=== PATIENT | female | born 1965 | race Caucasian/White ===

== ENCOUNTER 2016-09-10 20:50 | Inpatient (IN) | payer OTHER ==
--- NOTE | ~2016-09-10 | HP ---
History And Physical [place] [id number] [facility] [place] [address] NAME: FACUNDO FENG : 63 STATUS : ADM Emmanuel PAT#: [id number] AGE: 51 ADM/REG DATE : 09/10/16 MR#: [id number] REPORT SERV DATE: 09/11/16 DICTATED BY: ISIDORO WILSON DATE: 09/11/16 REPORT STATUS : Draft TRANSCRIBED BY: MODL DATE: 09/11/16 DATE OF ADMISSION: 09/10/2016 CHIEF COMPLAINT: A 51-year-old female, presenting with left chest discomfort and evidence of pneumothorax. HISTORY OF PRESENT ILLNESS: The patient's history was obtained through careful interview with the patient, and adopted sister coupled with review of [facility] and [facility] medical records. The patient in March 2016, underwent a liver transplant, has been on anti-rejection medication since that time. In June 2016 has begun to develop intermittent severe gastroparesis progressed from what she has experienced prior and she states that over the last three weeks in particular she has had severe nausea and vomiting on a daily basis with a very poor appetite. It is in this context that from vomiting she has apparently developed some discomfort in her left chest at the base of the chest "under my rib cage" about a sharp nagging quality pain, 10/10 severity, associated with shortness of breath causing her to double over at times. For evaluation of her abdominal pain she was ordered to have a CT scan done by Dr. Tamayo, linux architect, and this showed no acute intraabdominal process, but a left pneumothorax, therefore she was redirected to the hospital for further evaluation. There has been no cough. She has been "shaking" at times, but no fevers or chills. In the last three years she has lost about 100 pounds, and in the last six months, since her liver transplant she has lost another 35 pounds. REVIEW OF SYSTEMS: Otherwise, a 14-point review of systems was obtained and was negative. PAST MEDICAL HISTORY: 1. 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 2. Previous complications of cirrhosis including varices with band placement, splenomegaly, ascites, hepatorenal syndrome, and hepatic encephalopathy. 3. Pancytopenia. 4. Gastroesophageal reflux disorder. 5. Diabetes. 6. Hypothyroidism. 7. Depression. 8. Migraine headaches. 9. Biliary pancreatitis in 2003. 10.Gastroparesis. History And Physical [address] [place]. [address] NAME: FACUNDO FENG : 63 STATUS : ADM Emmanuel PAT#: [id number] AGE: 51 ADM/REG DATE : 09/10/16 MR#: [id number] REPORT SERV DATE: 09/11/16 DICTATED BY: ISIDORO WILSON DATE: 09/11/16 REPORT STATUS : Draft TRANSCRIBED BY: BRUCE DATE: 09/11/16 PAST SURGICAL HISTORY: 1. Liver transplant at [facility] in March 2016. 2. Cholecystectomy. 3. Appendectomy. 4. Hysterectomy with oophorectomy. ALLERGIES: TO ATIVAN AND ZANAFLEX. SOCIAL HISTORY: Quit smoking. No alcohol abuse. She is , has no children though. She is disabled. Lives in [place], [place]. FAMILY HISTORY: Adopted. CURRENT MEDICATIONS: 1. Elavil 50 mg p.o. q.h.s. 2. Norvasc 10 mg p.o. daily. 3. Vitamin D. 4. Benadryl p.r.n. 5. Synthroid 112 mcg p.o. daily. 6. Robaxin 750 mg p.o. t.i.d. as needed. 7. CellCept 500 mg p.o. b.i.d. 8. Roxicodone 10 mg every 6 hours as needed. 9. Protonix 40 mg p.o. daily. 10.Phenergan p.r.n. 11.Simethicone. 12.Prograf 6 mg p.o. b.i.d. 13.Probiotics. 14.Effexor 37.5 mg p.o. daily. PHYSICAL EXAMINATION: VITAL SIGNS: Temperature 98, pulse 99, blood pressure 128/68, respiratory rate 16, and O2 saturation 97% on room air. GENERAL: A pleasant, cooperative female, in no significant distress. HEENT: Pupils equal, round, and reactive to light. No conjunctival pallor. No scleral icterus. Nares are patent. Oropharynx is clear of obstruction. Moist mucous membranes. NECK: Trachea midline. No thyromegaly. LYMPH: No cervical lymphadenopathy. No supraclavicular lymphadenopathy. RESPIRATORY: Generally clear to auscultation at bases. I do not appreciate any diminished breath sounds or other abnormalities in the left lung in particular. The patient has a nonlabored respiratory effort. CARDIOVASCULAR: Regular rate and rhythm. No murmurs, rubs, or gallops. No extremity edema is appreciated. ABDOMEN: Soft, nontender, and nondistended. Normal bowel sounds auscultated throughout. No hepatosplenomegaly. DERMATOLOGICAL: Warm and dry extremities. No pallor. No cyanosis. PSYCHIATRIC: Normal affect. Good mood. Alert and oriented x3. History And Physical [address] [address] NAME: FACUNDO FENG : 63 STATUS : ADM Emmanuel PAT#: [id number] AGE: 51 ADM/REG DATE : 09/10/16 MR#: [id number] REPORT SERV DATE: 09/11/16 DICTATED BY: ISIDORO WILSON DATE: 09/11/16 REPORT STATUS : Draft TRANSCRIBED BY: MODVannessa DATE: 09/11/16 LABORATORY DATA: White blood cell count 2.6, hemoglobin 9.3, hematocrit 26.9, and platelets 78. Sodium 139, potassium 5.2, chloride 108, bicarb 24, BUN 37, creatinine 1.33, and glucose 95. INR 1.1. Liver enzymes within normal limits. STUDIES: 1. Chest x-ray by my own evaluation shows left pneumothorax. 2. EKG by my own evaluation shows sinus rhythm, low QRS voltage. ASSESSMENT AND PLAN: 1. Left pneumothorax. Consult Dr. Lao, radiosonde specialist, who is aware of case likely this was actually suffered about two weeks ago by her history. We will place her on 100% non-rebreather mask tonight. Anticipate chest tube placement on the morning of 09/11/2016 under the care of Dr. Perez, very stable at this time. 2. Liver transplant. 3. Pancytopenia. 4. Gastroparesis. Scheduled IV Reglan. KPL/MODL Isidoro Wilson M.D. / [id number] CC: Jacquie Belen Tim, M.D. Dustin Yousuf Perez II, III, M.D. Chirag Patel, M.D.
--- NOTE | ~2016-09-10 | CN ---
Consultation Report [facility] [address] [place]. [address] NAME: FACUNDO FENG : 63 STATUS : ADM Emmanuel PAT#: [id number] AGE: 51 ADM/REG DATE : 09/10/16 MR#: [id number] REPORT SERV DATE: 09/11/16 DICTATED BY: MOMO MALDONADO DATE: 09/11/16 REPORT STATUS : Draft TRANSCRIBED BY: MODL DATE: 09/11/16 CONSULTATION NOTE DATE OF CONSULTATION: 09/11/2016 CHIEF COMPLAINT: Left pleuritic pain in a patient with an enlarging left pneumothorax. HISTORY OF PRESENT ILLNESS: Mrs. Facundo Feng is a pleasant 51-year-old white female with a past medical history significant for nonalcoholic steatohepatitis, status post liver transplant, gastroparesis, and hypertension, who presents to [facility] with complaints of left pleuritic pain of one to two weeks' duration. It should be noted that, Mrs. Feng has not been hospitalized recently and has done fairly well given her comorbidities. Mrs. Feng is not currently followed by yeast supervisor. She does not usually require supplemental oxygen. She is on no nebulized medications. She states that she quit smoking over 30 years ago, prior to this time, she smoked approximately half a pack a day for a period of seven years. She largely denies symptomatology related to obstructive sleep apnea. She describes her exercise tolerance as of late, is being excellent, being able to walk a city block before experiencing any shortness of breath. The patient did undergo a liver transplant at [facility] in 2016. More recently, she has been began to develop intermittent severe gastroparesis. Approximately one to two weeks ago, she vomited with such force that soon after, she developed some left sided pain underneath her rib cage. It was thought that time that she conceivably may have pulled a muscle. That being said, the pain did persist and eventually culminated in her presentation to [facility]'s Emergency Room. Upon arrival, she was found to be normotensive and afebrile. She had good oxygenation sats on room air. Her initial blood work revealed a white blood cell count of 2600. Her creatinine was 1.33. She did undergo a chest x-ray, which demonstrated a left pneumothorax. She has had subsequent imaging which demonstrates enlargement in that pneumothorax. For the aforementioned reasons, she has been referred to the Pulmonary Service for further assessment. The patient's main pulmonary complaint is left-sided pleuritic pain. This is worse on inspiration. Interestingly, she has no complaints of shortness of breath. She does have some cough, but it is nonproductive. She denies any previous pneumothorax. She denies frequent upper respiratory infections or pneumonias. She denies childhood history of asthma. The patient does have a history of hypertension. She currently denies any murmurs, angina, or palpitations. She denies any paroxysmal nocturnal dyspnea or orthopnea. In regard to constitutional symptoms, the patient has had significant weight loss over the last six months. She has probably lost 100 pounds. She currently denies any fever, chills, abdominal pain, or edema. Consultation Report [address] [address] NAME: FACUNDO FENG : 63 STATUS : ADM Emmanuel PAT#: [id number] AGE: 51 ADM/REG DATE : 09/10/16 MR#: [id number] REPORT SERV DATE: 09/11/16 DICTATED BY: MOMO MALDONADO DATE: 09/11/16 REPORT STATUS : Draft TRANSCRIBED BY: BRUCE DATE: 09/11/16 PAST MEDICAL HISTORY: 1. Liver transplant secondary to ANDRADE cirrhosis. 2. Esophageal varices, status post band placement. 3. Pancytopenia. 4. Gastroesophageal reflux disease. 5. Diabetes. 6. Hypothyroidism. 7. Depression. 8. Migraine headaches. 9. Pancreatitis. 10.Gastroparesis. PAST SURGICAL HISTORY: 1. Liver transplant. 2. Cholecystectomy. 3. Hysterectomy with oophorectomy. 4. Bilateral carpal tunnel surgery. 5. Cervical surgery. FAMILY HISTORY: The patient denies family history of lung disease. SOCIAL HISTORY: The patient is . She has no children. 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 She denies any known exposures to dust, silica, or asbestos. TOBACCO/ALCOHOL: As previously mentioned, the patient quit smoking over thirty years ago, prior to this time, she smoked approximately half a pack a day for a period of seven years. She denies any recent alcohol or drug use. MEDICATIONS: 1. Amitriptyline 50 mg. 2. Amlodipine 10 mg. 3. Diphenhydramine 25 mg. 4. Levothyroxine 112 mcg. 5. Robaxin 750 mg. 6. CellCept 500 mg. 7. Oxycodone 5 mg. 8. Pantoprazole 40 mg. 9. Promethazine 25 mg. 10.Simethicone 125 mg. 11.Prograf 1 mg. 12.Venlafaxine 37.5 mg. ALLERGIES: THE PATIENT HAS ALLERGY TO ADHESIVES, TIZANIDINE. SHE HAS ADVERSE REACTIONS TO Consultation Report [address] [place]. [address] NAME: FACUNDO FENG : 63 STATUS : ADM Emmanuel PAT#: [id number] AGE: 51 ADM/REG DATE : 09/10/16 MR#: [id number] REPORT SERV DATE: 09/11/16 DICTATED BY: MOMO MALDONADO DATE: 09/11/16 REPORT STATUS : Draft TRANSCRIBED BY: BRUCE DATE: 09/11/16 LORAZEPAM. REVIEW OF SYSTEMS: A complete review of systems was performed with pertinent positives and negatives contained within the body of the HPI. PHYSICAL EXAMINATION: VITAL SIGNS: Blood pressure is 167/81, heart rate is 83, T-max is 98.4, respiratory rate is 14, SpO2 is 100%. GENERAL: The patient is a pleasant, well-nourished/well-developed female, who is not currently exhibiting any signs of acute distress. Skin: Skin with appropriate texture and turgor. No rashes, lesions, or ulcers. Nails are clear without cyanosis or clubbing. HEENT: Head: Skull is normocephalic/atraumatic. Facies symmetric. No masses or lesions. Eyes: Sclera anicteric, conjunctiva pink without exudates. Extra ocular movements intact. Pupils are equal, round, reactive to light. Ears: Auricles and tragus without pain to palpation. Hearing is grossly intact. Nose: Bilateral nasal patency. Sinuses without tenderness upon palpation. Throat: Dentition. Lips, oral mucosa, tongue, palate, and pharynx pink and moist without lesions. Uvula rises equally on phonation. Tongue midline without deviation. NECK: Neck supple. Trachea midline. No cervical lymphadenopathy appreciated. THORAX/LUNGS: Thorax is symmetric with equal chest rise. Breath sounds audible through entire field. No rales, wheezes, rhonchi. Tympanic left posterior thorax. CARDIOVASCULAR: Regular rate and rhythm. No murmurs, rubs, or gallops. Anterior chest without thrills, heaves, or lifts. ABDOMEN: Soft. Non-distended, non-tender. Active bowel sounds in all four quadrants. No hepatosplenomegaly noted. PERIPHERAL VASCULAR: No edema. No varicosities, stasis changes, open sores, ulcerations, or phlebitis. 2+ pulses in radial and dorsalis pedis. MUSCULOSKELETAL: Full AROM and PROM in all joints. No evidence of erythema, deformity, or crepitus. NEUROLOGIC: CN II - XII grossly intact. Good muscle bulk and tone bilaterally. Strength 5/5 throughout. PSYCHIATRIC: Patient demonstrates good judgment and insight. Pt is A&O x3. ACCESSORY DATA: Reveals a white blood cell count of 2100, hemoglobin and hematocrit are 8.3 and 23.2, platelets are 63. BUN is 37, creatinine is 1.31. Chest x-ray reveals a large left pneumothorax, which is increased in size from yesterday's imaging. IMPRESSION: 1. Enlarging left pneumothorax. 2. Nonalcoholic steatohepatitis-status post liver transplant on immunosuppressants. 3. Gastroparesis. PLAN: At this time, we will proceed with chest tube placement. The patient has been made Consultation Report [address] [address] NAME: FACUNDO EFNG : 63 STATUS : ADM Emmanuel PAT#: [id number] AGE: 51 ADM/REG DATE : 09/10/16 MR#: [id number] REPORT SERV DATE: 09/11/16 DICTATED BY: MOMO MALDONADO DATE: 09/11/16 REPORT STATUS : Draft TRANSCRIBED BY: MODVannessa DATE: 09/11/16 aware of the risks, benefits, and alternatives. She expresses understanding and wishes to proceed at this time. The aforementioned impression and plan has been discussed with Dr. Perez, who will follow further recommendations. We thank you for this consult and look forward to participating in the care of Mrs. Facundo Feng. GBS/MODL Momo Maldonado PA-C / [id number] CC: Yousuf Dykes II, M.D.
--- NOTE | ~2016-09-10 | IDS ---
Interim Discharge Summary [facility] [address] [place]. [address] NAME: FACUNDO FENG : 63 STATUS : ADM IN PAT#: [id number] AGE: 51 ADM/REG DATE : 09/10/16 MR#: [id number] REPORT SERV DATE: 09/15/16 DICTATED BY: BUBBA MICHAUD DATE: 09/14/16 REPORT STATUS : Draft TRANSCRIBED BY: MODL DATE: 09/14/16 ADMISSION DATE: 09/10/2016 DISCHARGE DATE: WORKING DIAGNOSES: 1. Left pneumothorax. 2. Systemic CMV infection. 3. ANDRADE status post liver transplant. 4. Pancytopenia. 5. Gastroparesis. CONSULTS: Nephrology. PROCEDURES: Chest tube placement on 09/11/2016. HOSPITAL COURSE: This is a 51-year-old lady who was admitted to the hospital with left-sided pneumothorax after violent nausea, vomiting, and retching. For details, please refer to excellent H and P by Dr. Ricardo Parker. In summary, the patient was admitted and was seen by Pulmonology who inserted a chest tube. By the second day of the hospital stay, the patient's pneumothorax was resolved with the chest tube. The chest tube was clamped overnight, but on the third day, the patient was found to have a very tiny amount of pneumothorax that had returned overnight. The patient was thus kept for another night and then the pneumothorax was enlarging. Thus, the current plan is to continue suction through the chest tube and repeat chest x-ray in the morning. Chest tube is being managed solely by Pulmonology. During her hospital stay, the patient did have persistent nausea with vomiting. The patient had already done outpatient labs with Dr. Jayy Bradley who is 4th grade math teacher. I was contacted by Dr. Bradley's office and was told that the patient's CMV titer was 750,000, which suggests systemic CMV infection and that also explains worse pancytopenia as well as nausea and vomiting. The patient was thus started on Valcyte 450 mg p.o. b.i.d. as per Dr. Bradley's recommendations. The patient is also to have outpatient followup with Dr. Bradley as soon as the patient is ready for discharge home. FRIEDA/BRUCE Bubba Michaud MD / [id number] CC: MD Dustin Garrison II, M.D.
--- NOTE | ~2016-09-10 | DS ---
Discharge Summary [facility] [address] [place]. [address] NAME: FACUNDO FENG : 63 STATUS : DIS IN PAT#: [id number] AGE: 51 ADM/REG DATE : 09/10/16 MR#: [id number] REPORT SERV DATE: 09/18/16 DICTATED BY: JR. VIDAL WILLIAM JOHN DATE: 09/17/16 REPORT STATUS : Draft TRANSCRIBED BY: MODL DATE: 09/17/16 ADMISSION DATE: 09/10/2016 DISCHARGE DATE: 09/17/2016 DISCHARGE DIAGNOSIS: Include. 1. Left spontaneous pneumothorax. 2. Systemic cytomegalovirus after liver transplant. 3. Nonalcoholic steatohepatitis with liver failure and subsequent transplant. 4. Hyperkalemia. 5. Gastroparesis. 6. Azotemia. OPERATIONS, PROCEDURES, AND TREATMENTS: Include. 1. PA and lateral chest x-ray done 09/10/2016 which showed left pneumothorax measuring 3.6 cm at the apex and 2.5 cm at the base. 2. Followup chest x-ray done 09/11/2016 showed interval retraction by several centimeters left-sided chest tube, no pneumothorax as well. There was trace pleural effusion. 3. Multiple chest x-rays for chest tube placement. 4. Chest tube placement by Dr. Menendez done 09/14/2016. 5. Removal of chest tube on 09/14/2016 with small residual pneumothorax unchanged on x- rays on the 09/15/2016, 09/16/2016, and 09/17/2016. CONSULTING PHYSICIANS: Include Pulmonary, Momo Ventura, physician assistant general manager. DISCHARGE MEDICATIONS: Include. 1. Elavil 50 mg orally daily. 2. Norvasc 10 mg orally daily. 3. Vitamin D3 of 1000 units at bedtime. 4. Synthroid 112 mcg orally daily. 5. Protonix 40 mg orally daily. 6. Tacrolimus 5 mg orally twice a day. 7. Valcyte 900 mg orally twice a day. 8. Effexor 37.5 daily. 9. Probiotic daily. 10.Benadryl 25 p.r.n. 11.Robaxin 750 t.i.d. p.r.n. 12.Oxycodone 10 mg q.6h p.r.n. 13.Phenergan 25 mg twice a day as needed. HOSPITAL COURSE: The patient is a 51-year-old female who presented to the emergency room on 09/10/2016. The patient has a history of liver transplant on antirejection medications. She said that in 06/2016, she began to develop intermittent severe gastroparesis with poor appetite. She had been vomiting and developed left chest pain "under my rib cage" which was sharp, nagging, and rated as 10/10. The patient's initial exam includes temperature 98, heart rate 99, blood pressure 128/68, respiratory rate of 16, saturating 97% on room air. Lung exam was clear to auscultation without appreciable diminished breast sounds. Discharge Summary [facility] [id number] [place]. [address] NAME: FACUNDO FENG : 63 STATUS : DIS IN PAT#: [id number] AGE: 51 ADM/REG DATE : 09/10/16 MR#: [id number] REPORT SERV DATE: 09/18/16 DICTATED BY: JR. VIDAL WILLIAM JOHN DATE: 09/17/16 REPORT STATUS : Draft TRANSCRIBED BY: BRUCE DATE: 09/17/16 Otherwise, exam was mostly unremarkable. Laboratory was largely unremarkable. Chest x-ray showed a left pneumothorax. The patient was admitted to the hospital for a spontaneous pneumothorax. She was seen in consultation by Dr. Lao of Pulmonary team and placed on 100% non-rebreather. A chest tube was inserted with quick resolution. The chest tube was clamped overnight and eventually discontinued on 09/15/2016. Followup chest x-rays showed minimal change with some portion of a pneumothorax remaining present. The patient is stable with no increase in the size of the pneumothorax. I discussed the case with Momo Ventura, of the Pulmonary Service, who planned tentatively to discharge the patient, have her follow up with a chest x-ray in the pulmonary office next week. Regarding systemic cytomegalovirus, the hospitalist team was contacted by Dr. Jayy Bradley of Hepatology. Apparently, she had CMV titers suggestive of systemic CMV infection which explains the worsening pancytopenia, nausea, and vomiting. The hospitalist team was instructed to start her on Valcyte 450 mg orally twice a day by Dr. Bradley's office. I was later contacted by the transplant center who recommended increasing that to 900 b.i.d. The patient already has a followup with the transplant center in about two weeks, will also follow up with Dr. Bradley in that regard. Regarding the liver transplant and antirejection drugs, per my discussion with the transplant center, they recommended stopping mycophenolate and decreasing the tacrolimus dose to 5 mg daily. The tacrolimus is decreased due to the hyperkalemia which the patient has had. Again will follow up with the Transplant Center. Regarding hyperkalemia, the patient had mildly elevated potassium and this did not resolve spontaneously therefore she got a single dose of 30 g of Kayexalate. The patient will be discharged home today, 09/17/2016, after seen by the Pulmonary Service. She will follow up Transplant Center as scheduled in about one to two weeks. She will follow up with Dr. Bradley in about one month. She will follow up with Pulmonary likely next week for a followup chest x-ray. DISCHARGE DIET: Regular. ACTIVITY: As tolerated. This discharge took 37 minutes for patient encounter, coordination of care, and documentation. [facility]/BRUCE Vernon Vidal Jr, MD Discharge Summary [address] [address] NAME: FACUNDO FENG : 63 STATUS : DIS IN PAT#: [id number] AGE: 51 ADM/REG DATE : 09/10/16 MR#: [id number] REPORT SERV DATE: 09/18/16 DICTATED BY: JR. VIDAL WILLIAM JOHN DATE: 09/17/16 REPORT STATUS : Draft TRANSCRIBED BY: BRUCE DATE: 09/17/16 / [id number] CC: Vernon Vidal Jr, MD John Tapp II, M.D.
[2016-09-10 19:33] LABS: BASOPHILS 0.4 %; BASOPHILS ABSOLUTE 0.01 10/3/uL (0.0-0.16); EOSINOPHILS 3.1 %; EOSINOPHILS ABSOLUTE 0.08 10/3/uL (0.0-0.53); ER CBC TAT 0 Hrs 14 Mins; HEMATOCRIT 26.9 % (36.0-48.0); HEMOGLOBIN 9.3 g/dL (12.0-16.0); IMMATURE GRANULOCYTES 0.8 %; IMMATURE GRANULOCYTES ABSOLUTE 0.02 10/3/uL (0.0-0.11); LYMPHOCYTES ABSOLUTE 0.95 10/3/uL (0.67-4.30); MEAN CORPUS HGB CONC 34.6 g/dL (32.0-36.0); MEAN CORPUSCULAR HEMOGLOB 27.9 pg (26.0-34.0); MEAN PLATELET VOLUME 9.8 fL (9.2-13.0); MONOCYTES 9.3 %; MONOCYTES ABSOLUTE 0.24 10/3/uL (0.21-1.20); NEUTROPHILS 49.4 %; NEUTROPHILS ABSOLUTE 1.27 10/3/uL (2.02-8.40); RBC DISTRIBUTION WIDTH 16.1 % (12.0-16.0); RED CELL COUNT 3.33 10/6/uL (4.0-5.6); WHITE BLOOD CELLS 2.6 10/3/uL (4.5-10.5)
[2016-09-10 19:34] LABS: MANUAL DIFF NO %; MEAN CORPUSCULAR VOLUME 80.8 fL (80-100); PLATELET COUNT 78 10/3/uL (150-400)
[2016-09-10 19:40] LABS: A/G RATIO 1.2 (0.7-1.9); ALBUMIN 3.3 G/DL (3.5-5.0); ALKALINE PHOSPHATASE 79 U/L (45-117); BUN (BLOOD UREA NITROGEN) 37 MG/DL (6-23); CALCIUM, SERUM 8.3 MG/DL (8.5-10.4); CHLORIDE, SERUM 108 MMOL/L (96-112); CO2 (CARBON DIOXIDE) 24 MMOL/L (24-34); CREATININE 1.33 MG/DL (0.55-1.02); GFR AFRICAN AMERICAN 53 ML/MIN (>=60); GFR NON AFRICAN AMERICAN 46 ML/MIN (>=60); GLOBULIN 2.7 G/DL (2.5-4.1); GLUCOSE, SERUM 95 MG/DL (60-99); POTASSIUM, SERUM 5.2 MMOL/L (3.5-5.3); SGOT(AST) 42 U/L (5-40); SGPT(ALT) 65 U/L (5-65); SODIUM, SERUM 139 MMOL/L (135-148); TOTAL BILIRUBIN 0.7 MG/DL (0-1.2)
[2016-09-10 19:41] LABS: INTERNATIONAL NORMAL RATI 1.1 UNITS (-)
[2016-09-10 19:42] LABS: PARTIAL THROMBO TIME 30.2 SEC (22.5-37.2)
[2016-09-10 19:53] LABS: PROTIME (NOT ORD) 14.2 SEC (12.0-14.5)
[2016-09-10 20:04] LABS: OVALOCYTES 1+ (3-10/OIF) (0-2/OIF); PLATELET ESTIMATE DEC (ADEQUATE)
[~2016-09-10 20:50] MED LIST: ACT300 PO; AMIT100 PO; AMIT25 PO; AUG500 PO; CONSTULOSE PO; COR20 PO; COR40 PO; EFFEX37.5 PO; EFFEX75 PO; ENDOCET1 TA3 PO; ESTRACE1 MG PO; FLEX PO; HUMALOG SC; HUMULIN N1 ML SC; HUMULIN R1 ML SC; ICAPS AREDS SO1 EACH; INSULIN PUMP SC; KLOR-CON M2020 MEQ PO; L20 PO; L40 PO; L80 PO; LACT30UDL PO; LANTUS SC; LEVAQUIN750 MG PO; LEVOTHYROXIN112 MCG PO; LEVOTHYROXIN50 MCG PO; LORT7 PO; LYRICA150 MG PO; MAGOX4 PO; METHOC500B PO; METHOC750B PO; NORCO1 TAB PO; OXYCOD PO; OXYCON40 PO; OXYCONTIN30 MG PO; PERCOCET1 TA4 PO; PR25 PO; PRIN20 PO; PROAMAT5 PO; REG PO; REG5 PO; ROXICODONE30 MG PO; SPIRO50 PO; SYN.05 PO; SYN075 PO; VITAMIN A; VITAMIN A8000 UNIT PO; VITAMIN D; VITAMIN D1000 UNI1 PO; VITAMIN D31000 UNIT PO; VITAMIN E; VITE PO; VITE1000 PO; XIFAXAN550 MG PO; ZANAFLEX2 MG PO; ZESTRIL20 MG PO
[2016-09-10] MEDS ORDERED: AMIT50 PO (21:06)
[2016-09-10] MEDS ORDERED: NORV10 PO (21:07)
[2016-09-10] MEDS ORDERED: PROBIOTIC FORMULA PO (21:07)
[2016-09-10] MEDS ORDERED: VITAMIN D31000 UNIT PO (21:07)
[2016-09-10] MEDS ORDERED: BEN25 PO (21:08)
[2016-09-10] MEDS ORDERED: SYN112 PO (21:08)
[2016-09-10] MEDS ORDERED: METHOC750B PO (21:08)
[2016-09-10] MEDS ORDERED: CELLCEPT5 PO (21:09)
[2016-09-10] MEDS ORDERED: PROTONIX PO (21:10)
[2016-09-10] MEDS ORDERED: OXYCOD PO (21:10)
[2016-09-10] MEDS ORDERED: PR25 PO (21:10)
[2016-09-10] MEDS ORDERED: MYTAB GAS125 MG PO (21:10)
[2016-09-10] MEDS ORDERED: PROGRAF1 PO (21:11)
[2016-09-10] MEDS ORDERED: EFFEX37.5 PO (21:22)
[2016-09-11 05:34] LABS: HEMOGLOBIN 8.3 g/dL (12.0-16.0); MEAN CORPUS HGB CONC 35.8 g/dL (32.0-36.0); MEAN CORPUSCULAR HEMOGLOB 28.7 pg (26.0-34.0); MEAN CORPUSCULAR VOLUME 80.3 fL (80-100); MEAN PLATELET VOLUME 9.6 fL (9.2-13.0); PLATELET COUNT 63 10/3/uL (150-400); RBC DISTRIBUTION WIDTH 16.1 % (12.0-16.0); RED CELL COUNT 2.89 10/6/uL (4.0-5.6)
[2016-09-11 05:37] LABS: INTERNATIONAL NORMAL RATI 1.1 UNITS (-); PARTIAL THROMBO TIME 32.1 SEC (22.5-37.2); PROTIME (NOT ORD) 14.4 SEC (12.0-14.5)
[2016-09-11 05:55] LABS: A/G RATIO 1.2 (0.7-1.9); ALBUMIN 2.8 G/DL (3.5-5.0); ALKALINE PHOSPHATASE 71 U/L (45-117); BUN (BLOOD UREA NITROGEN) 37 MG/DL (6-23); CALCIUM, SERUM 8.1 MG/DL (8.5-10.4); CHLORIDE, SERUM 114 MMOL/L (96-112); CO2 (CARBON DIOXIDE) 20 MMOL/L (24-34); CREATININE 1.31 MG/DL (0.55-1.02); GFR AFRICAN AMERICAN 54 ML/MIN (>=60); GFR NON AFRICAN AMERICAN 47 ML/MIN (>=60); GLOBULIN 2.3 G/DL (2.5-4.1); GLUCOSE, SERUM 90 MG/DL (60-99); POTASSIUM, SERUM 5.2 MMOL/L (3.5-5.3); SGOT(AST) 38 U/L (5-40); SGPT(ALT) 53 U/L (5-65); SODIUM, SERUM 143 MMOL/L (135-148); TOTAL BILIRUBIN 0.5 MG/DL (0-1.2); TOTAL PROTEIN 5.1 G/DL (6.0-8.5)
[2016-09-11 06:04] LABS: HEMATOCRIT 23.2 % (36.0-48.0); WHITE BLOOD CELLS 2.1 10/3/uL (4.5-10.5)
[2016-09-11 06:05] LABS: MANUAL DIFF YES %
[2016-09-11 07:15] LABS: LYMPHOCYTES 42 %; LYMPHOCYTES ABSOLUTE (CALC) 0.88 10/3/uL (0.67-4.30); MONOCYTES 7 %; MONOCYTES ABSOLUTE (CALC) 0.15 10/3/uL (0.21-1.20); NEUTROPHILS ABSOLUTE (CALC) 1.07 10/3/uL (2.02-8.40); OVALOCYTES 1+ (3-10/OIF) (0-2/OIF); SEGMENTED NEUTROPHIL (0) 51 %; TOTAL NUCLEATED CELLS 100
[2016-09-11 07:16] LABS: PLATELET ESTIMATE DEC (ADEQUATE)
[2016-09-13] MEDS ORDERED: VALCYTE PO (10:57)
[2016-09-15 07:09] LABS: HEMATOCRIT 23.2 % (36.0-48.0); HEMOGLOBIN 7.8 g/dL (12.0-16.0); MEAN CORPUSCULAR HEMOGLOB 27.5 pg (26.0-34.0); MEAN CORPUSCULAR VOLUME 81.7 fL (80-100); MEAN PLATELET VOLUME 9.5 fL (9.2-13.0); PLATELET COUNT 74 10/3/uL (150-400); RBC DISTRIBUTION WIDTH 15.7 % (12.0-16.0); RED CELL COUNT 2.84 10/6/uL (4.0-5.6)
[2016-09-15 07:20] LABS: MANUAL DIFF YES %; MEAN CORPUS HGB CONC 33.6 g/dL (32.0-36.0)
[2016-09-15 07:21] LABS: BUN (BLOOD UREA NITROGEN) 33 MG/DL (6-23); CALCIUM, SERUM 7.9 MG/DL (8.5-10.4); CHLORIDE, SERUM 115 MMOL/L (96-112); CO2 (CARBON DIOXIDE) 24 MMOL/L (24-34); CREATININE 1.14 MG/DL (0.55-1.02); GFR AFRICAN AMERICAN 64 ML/MIN (>=60); GFR NON AFRICAN AMERICAN 55 ML/MIN (>=60); GLUCOSE, SERUM 103 MG/DL (60-99); POTASSIUM, SERUM 5.4 MMOL/L (3.5-5.3); SODIUM, SERUM 144 MMOL/L (135-148)
[2016-09-15 08:50] LABS: BAND NEUTROPHILS 8 %; EOSINOPHILS 5 %; LYMPHOCYTES 44 %; LYMPHOCYTES ABSOLUTE (CALC) 0.88 10/3/uL (0.67-4.30); MONOCYTES 7 %; MONOCYTES ABSOLUTE (CALC) 0.14 10/3/uL (0.21-1.20); NEUTROPHILS ABSOLUTE (CALC) 0.88 10/3/uL (2.02-8.40); PLATELET ESTIMATE SLT DEC (ADEQUATE); SEGMENTED NEUTROPHIL (0) 36 %; TOTAL NUCLEATED CELLS 100
[2016-09-15 08:51] LABS: RBC MORPHOLOGY NORM (NORMAL)
[2016-09-16 05:15] LABS: BUN (BLOOD UREA NITROGEN) 31 MG/DL (6-23); CALCIUM, SERUM 8.2 MG/DL (8.5-10.4); CHLORIDE, SERUM 115 MMOL/L (96-112); CO2 (CARBON DIOXIDE) 22 MMOL/L (24-34); GFR AFRICAN AMERICAN 67 ML/MIN (>=60); GFR NON AFRICAN AMERICAN 58 ML/MIN (>=60); GLUCOSE, SERUM 93 MG/DL (60-99); POTASSIUM, SERUM 5.5 MMOL/L (3.5-5.3); SODIUM, SERUM 144 MMOL/L (135-148)
[2016-09-17 05:34] LABS: BUN (BLOOD UREA NITROGEN) 28 MG/DL (6-23); CALCIUM, SERUM 7.7 MG/DL (8.5-10.4); CHLORIDE, SERUM 113 MMOL/L (96-112); CO2 (CARBON DIOXIDE) 24 MMOL/L (24-34); CREATININE 1.22 MG/DL (0.55-1.02); GFR AFRICAN AMERICAN 59 ML/MIN (>=60); GFR NON AFRICAN AMERICAN 51 ML/MIN (>=60); GLUCOSE, SERUM 97 MG/DL (60-99); POTASSIUM, SERUM 4.8 MMOL/L (3.5-5.3); SODIUM, SERUM 143 MMOL/L (135-148)
== END 2016-09-17 13:00 | disposition home or self-care (01) | DRG 200 ==
LOC: ER 20:50 → 5NO 21:04
PROVIDERS: Emergency Medicine; Hospitalist; Internal Medicine
PROC: 0W9B30Z Drainage of Left Pleural Cavity with Drainage Device, Percutaneous Approach (ICD-10-PCS; principal; 2016-09-11)
DX: J93.83 Other pneumothorax (principal); D61.818 Other pancytopenia; B25.9 Cytomegaloviral disease, unspecified; Z94.4 Liver transplant status; K31.84 Gastroparesis; E87.5 Hyperkalemia; K75.81 Nonalcoholic steatohepatitis (NASH); Z90.710 Acquired absence of both cervix and uterus; Z90.49 Acquired absence of other specified parts of digestive tract
CPT/HCPCS: 32557; 71010; 71020; 80048; 80053; 82150; 82962; 83690; 83735; 84443; 85025; 85610; 85730; 93005; 99152; 99153; 99285; A9270-GY; C1769; J1170; J2405; J2765; J7507; Q9967